=== PATIENT | female | born 1985 | race African-American/Black ===

== ENCOUNTER 2025-05-04 06:23 | Inpatient (IN) ==
[~2025-05-04 06:23] MED LIST: KETAMINE HCL ONE; ULTANE GAS IN ONE
[2025-05-04] MEDS ORDERED: LR 1,000 ML IV 1,000 ML IV SCH (06:32)
[2025-05-04] MEDS: PEPCID 20 MG VIAL ONE ×2 (06:42→06:50)
[2025-05-04] MEDS: MARCAINE SPINAL ONE (06:45)
[2025-05-04] MEDS: DECADRON INJ ONE (06:45)
[2025-05-04] MEDS: ZOFRAN INJ 4 MG VIAL ONE (06:45)
[2025-05-04] MEDS: REGLAN INJ 10 MG VIAL ONE (06:45)
[2025-05-04] MEDS: XYLOCAINE 2 % (PLAIN) ONE (06:47)
[2025-05-04] MEDS: LR 1,000 ML IV 1,000 ML IV ONE ×2 (06:50→07:59)
[2025-05-04] MEDS: NEO-SYNEPHRINE INJ ONE (06:54)
[2025-05-04] MEDS: PRECEDEX INJ VIAL ONE (06:59)
[2025-05-04] MEDS: BICITRA 30 ML PO ONE (07:09)
[2025-05-04] MEDS: ANCEF VIAL 1 GRAM IVP ONE (07:20)
[2025-05-04] MEDS: FENTANYL VIAL INJ 100 mcg ONE (08:20)
[2025-05-04] MEDS: VERSED ONE (08:20)
[2025-05-04] MEDS: PITOCIN ONE ×3 (08:23→08:36)
[2025-05-04] MEDS: TORADOL 30 MG VIAL ONE ×2 (08:38→08:47)
[2025-05-04] MEDS: OFIRMEV IV 1000 MG VIAL 1,000 MG/100 ML VIAL IV ONE (08:39)
[2025-05-04] MEDS: ROBINUL ONE (08:43)
[2025-05-04] MEDS ORDERED: BENADRYL INJ 50 MG VIAL IVP PRN ×2 (08:57→10:10)
[2025-05-04] MEDS ORDERED: ZOFRAN INJ 4 MG VIAL IVP PRN ×2 (08:57→10:10)
[2025-05-04] MEDS: DILAUDID INJ ONE ×2 (09:02→09:54)
[2025-05-04] MEDS: DILAUDID INJ IVP PRN (09:56)
[2025-05-04] MEDS ORDERED: TORADOL 30 MG VIAL IVP PRN (10:10)
[2025-05-04] MEDS ORDERED: REGLAN INJ 10 MG VIAL IVP PRN (10:10)
[2025-05-04] MEDS ORDERED: NARCAN INJ IVP PRN (10:10)
[2025-05-04] MEDS ORDERED: PERCOCET TAB 5/325 MG PO PRN (10:10)
[2025-05-04] MEDS ORDERED: MORPHINE SULFATE PCA 30 MG ONE (10:38)
[2025-05-04] MEDS: MORPHINE SULFATE PCA 30 MG IVP PRN (10:50)
[2025-05-04] MEDS: NS 100 ML IV 100 ML ONE (11:03)
[2025-05-04] MEDS: LUBIFRESH PM EYE OINTMENT ONE (11:04)
[2025-05-04] MEDS: OXYTOCIN 20 UNIT/1,000 ML-NS 20 UNIT/1,000 ML PLAST..BAG IV SCH (11:11)
[2025-05-04] MEDS ORDERED: ADACEL or BOOSTRIX TDaP VACCINE IM ONE (16:01)
[2025-05-04] MEDS: ADACEL or BOOSTRIX TDaP VACCINE IM ONE (16:03)
[2025-05-04] MEDS ORDERED: NovoLIN R (or HumuLIN R) SUBCUT PRN (18:05)
[2025-05-04] MEDS: SNACK - Diabetic Appropriate PO SCH (19:08)
[2025-05-04] MEDS: NORMODYNE TAB 100 MG PO SCH (20:10)
[2025-05-05] MEDS: MYLICON TAB 80 MG CHEW PO PRN (03:48)
[2025-05-05 05:11] LABS: HEMATOCRIT 29.3 % (36.0-47.0)
[2025-05-05 05:27] LABS: HEMOGLOBIN 10.3 g/dL (12.0-16.0)
[2025-05-05] MEDS: VALTREX PO SCH (08:16)
[2025-05-05] MEDS: COLACE CAP 100 MG PO SCH (08:18)
[2025-05-05] MEDS: PRENATAL PLUS PO SCH (08:18)
[2025-05-05] MEDS: PERCOCET TAB 5/325 MG PO PRN (09:20)
[2025-05-05] MEDS: MOTRIN TAB 800 MG PO PRN (12:31)
[2025-05-05] MEDS: BACTROBAN TOPICAL OINT TOP SCH (13:15)
[2025-05-06 04:10] VITALS: O2SAT 98
[2025-05-06 08:01] VITALS: BP 131/86; PULSE 108; RESP 17; TEMP 97.6
== END 2025-05-06 09:45 | disposition home or self-care (01) | DRG 784 ==
LOC: LD 06:23 → MED/SURG 10:17
PROVIDERS: ADMIT Specialist; ATTEND Specialist
DX: Z37.0 Single live birth; O34.211 Maternal care for low transverse scar from previous cesarean delivery; Z86.19 Personal history of other infectious and parasitic diseases; Z3A.39 39 weeks gestation of pregnancy; O24.429 Gestational diabetes mellitus in childbirth, unspecified control; O10.92 Unspecified pre-existing hypertension complicating childbirth